=== PATIENT | female | born 1980 | race Hispanic/Latino ===

== ENCOUNTER → 2020-09-11 | Outpatient (CLI) | payer BC ==
[~2020-09-11] MED LIST: GADOTERATE MEGLUMINE 10 MMOL/20 ML VIAL IV ONE
== END | disposition home or self-care (01) ==
LOC: RAH 09:48
PROVIDERS: ATTEND Neurological Surgery
DX: M43.17 Spondylolisthesis, lumbosacral region (principal); M47.26 Other spondylosis with radiculopathy, lumbar region; R25.2 Cramp and spasm
CPT/HCPCS: 72158; A9575

== ENCOUNTER 2020-09-22 09:00 | Observation (INO) | payer BC ==
[~2020-09-22] VITALS: Ht 162.6 cm; Wt 93.1 kg
[2020-09-22 13:20] VITALS: BP 146/73
[2020-09-22 14:01] LABS: BASOPHILS % (AUTO) 0.3 % (0.0-5.0); EOSINOPHILS % (AUTO) 0.8 % (0.0-8.0); HEMATOCRIT 40.5 % (36-48); LYMPHOCYTES % (AUTO) 17.1 % (21.0-51.0); MEAN CORPUSCULAR HEMOGLOBIN 30.9 pg (27.0-33.0); MEAN CORPUSCULAR HGB CONC 32.3 g/dL (32.0-36.0); MEAN CORPUSCULAR VOLUME 95.5 fL (79-99); MONOCYTES % (AUTO) 8.2 % (3.0-13.0); PLATELET COUNT (AUTO) 310 K/uL (130-400); RED BLOOD CELL COUNT(AUTO) 4.24 MIL/uL (4.00-5.50); RED CELL DISTRIBUTION WIDTH 13.7 % (11.0-15.5); WHITE BLOOD COUNT (AUTO) 9.1 K/uL (4.8-10.8)
[2020-09-22 14:12] LABS: POTASSIUM 4.1 mmol/L (3.5-5.1)
[2020-09-25] MEDS ORDERED: FLUO40CA49 PO (15:41)
[2020-09-25] MEDS ORDERED: ACET-2247 PO (15:41)
[2020-09-25] MEDS ORDERED: IBUP-2077 PO (15:41)
[2020-09-26] VITALS (23 sets, daily range): BP systolic 120–152; BP diastolic 63–94
[2020-09-26] MEDS: CEFAZOLIN SODIUM 1 GM VIAL IVP SCH ×2 (06:00→07:45)
[2020-09-26] MEDS ORDERED: LACTATED RINGERS 1000ML 1,000 ML IV ONE (06:22)
[2020-09-26] MEDS ORDERED: CEFAZOLIN SODIUM 1 GM VIAL ONE (06:48)
[2020-09-26] MEDS ORDERED: MORPHINE PF 100MG/10ML AMP IV ONE (06:48)
[2020-09-26] MEDS ORDERED: BUPIVACAINE/EPI/PF 0.25% 30ML VIAL IJ ONE (06:48)
[2020-09-26] MEDS ORDERED: LIDOCAINE PF 100MG/5ML (2%) SYRINGE 5ML ONE (06:49)
[2020-09-26] MEDS ORDERED: THROMBIN-JMI 20000 UNIT KIT TP ONE (06:49)
[2020-09-26] MEDS ORDERED: ROCURONIUM 10MG/1ML SYR 10 MG/ML ML ONE (06:50)
[2020-09-26] MEDS ORDERED: MIDAZOLAM HCL 1 MG/ML 2ML VIAL ONE (06:50)
[2020-09-26] MEDS ORDERED: FENTANYL CITRATE PF 50 MCG/1 ML 5ML AMP IV ONE (06:50)
[2020-09-26] MEDS ORDERED: PROPOFOL 10 MG/ML 20ML VIAL IV ONE ×2 (06:50→07:40)
[2020-09-26] MEDS ORDERED: KETAMINE 50MG/ML SYRINGE 50 MG/ML DISP.SYRIN IV ONE (07:18)
[2020-09-26] MEDS ORDERED: DEXAMETHASONE SOD PHOSPHATE 10MG/ML 1ML VIAL ONE (07:38)
[2020-09-26] MEDS ORDERED: ONDANSETRON 4MG INJ ONE (08:00)
[2020-09-26] MEDS ORDERED: GLYCOPYRROLATE 1 MG/5 ML SYRINGE ONE (09:08)
[2020-09-26] MEDS ORDERED: KETOROLAC 30MG VIAL (30MG/ML) ONE (09:39)
[2020-09-26] MEDS ORDERED: NEOSTIGMINE 5MG/5ML SYR IV ONE (09:50)
[2020-09-26] MEDS ORDERED: FENTANYL CITRATE PF 50 MCG/1 ML 2ML VIAL ONE (10:03)
[2020-09-26] MEDS ORDERED: MEPERIDINE-PF 25 MG/ML SYG ONE ×2 (10:25→10:37)
[2020-09-26] MEDS ORDERED: IBUPROFEN 800 MG TAB PO PRN (10:30)
[2020-09-26] MEDS: DEXAMETHASONE SOD PHOSPHATE 4 MG/ML 1ML VIAL IVP SCH ×3 (10:30→20:05)
[2020-09-26] MEDS ORDERED: PROMETHAZINE HCL 25 MG/ML 1ML AMPULE IM PRN (10:30)
[2020-09-26] MEDS ORDERED: ACETAMINOPHEN 325 MG TAB PO PRN (10:30)
[2020-09-26] MEDS ORDERED: LACTATED RINGERS 1000ML 1,000 ML IV SCH (10:30)
[2020-09-26] MEDS ORDERED: MORPHINE 2 MG SYG IVP PRN (10:30)
[2020-09-26] MEDS ORDERED: 0.9%NACL 10ML VIAL IVP PRN (10:30)
[2020-09-26] MEDS ORDERED: CEFAZOLIN SODIUM 1 GM VIAL IVP SCH (15:30)
[2020-09-26] MEDS: HYDROCODONE/ACETAMINOPHEN 5/325 MG TAB PO PRN (15:55)
[2020-09-26] MEDS ORDERED: FLUOXETINE HCL 20 MG CAPSULE PO SCH (21:00)
[2020-09-26] MEDS ORDERED: TRAZ-185 PO (21:44)
[2020-09-26] MEDS ORDERED: TIZA-194 PO (21:44)
[2020-09-26] MEDS ORDERED: TRAZODONE HCL 50 MG TAB ONE (21:48)
[2020-09-27] VITALS: BP 135/76
[2020-09-27] MEDS: DEXAMETHASONE SOD PHOSPHATE 4 MG/ML 1ML VIAL IVP SCH (03:44)
[2020-09-27 04:00] VITALS: BP 120/74
[2020-09-27 07:30] VITALS: BP 113/70
[2020-09-27] MEDS: HYDROCODONE/ACETAMINOPHEN 5/325 MG TAB PO PRN (08:05)
[2020-09-27] MEDS ORDERED: TRAZODONE HCL 50 MG TAB PO SCH (21:00)
[2020-09-27] MEDS ORDERED: TIZANIDINE HCL 2 MG TABLET PO SCH (21:00)
== END 2020-09-27 10:05 | disposition home or self-care (01) ==
LOC: EDSTATUS 09:00 → OBSVTOIN 09-26 06:27 → INTOOBSV 09-26 06:27 → DAHIP 09-26 06:27 → 4BH 09-26 11:20 → 4AH 09-26 11:27
PROVIDERS: ADMIT Neurological Surgery; ATTEND Neurological Surgery
DX: M54.16 Radiculopathy, lumbar region (principal); Z20.822 Contact with and (suspected) exposure to COVID-19; M48.061 Spinal stenosis, lumbar region without neurogenic claudication; M67.441 Ganglion, right hand
CPT/HCPCS: 36415; 63047; 63048; 71045; 72020; 80051; 84703; 85025; 87635; 88305; 88313; 88341; 88342; 93005; 96374; 96375; 96376 ×2; A4215; A4221; A4222; A4223; A4344; A4495; A4600; A4649 ×3; A4663; A6260; G0378 ×24; J0690 ×3; J1100 ×5; J1885; J2001; J2175 ×2; J2250; J2274; J2405; J2704 ×2; J2710; J3010 ×2; J3490 ×3; J7120 ×4

== ENCOUNTER → 2021-07-20 | Outpatient (CLI) | payer BC ==
[~2021-07-20] MED LIST changes: +ACET-2247 PO; +FLUO40CA49 PO; -GADOTERATE MEGLUMINE 10 MMOL/20 ML VIAL IV ONE; +IBUP-2077 PO; +TIZA-194 PO; +TRAZ-185 PO
== END | disposition home or self-care (01) ==
LOC: RAH 14:56
PROVIDERS: ATTEND Nurse Practitioner Adult Health
DX: Z12.31 Encounter for screening mammogram for malignant neoplasm of breast (principal)
CPT/HCPCS: 77067

== ENCOUNTER → 2021-09-25 | Outpatient (CLI) | payer BC | END | disposition home or self-care (01) | LOC: LAB 09:00 | PROVIDERS: ATTEND Hospitalist | DX: Z20.822 Contact with and (suspected) exposure to COVID-19 (principal) | CPT/HCPCS: 87426 ==

== ENCOUNTER → 2022-07-02 | Outpatient (CLI) | payer BC ==
[~2022-07-02] MED LIST changes: +IOHEXOL-350 50ML VIAL IV ONE
== END | disposition home or self-care (01) ==
LOC: RAH 13:58
PROVIDERS: ATTEND Obstetrics & Gynecology
DX: D25.9 Leiomyoma of uterus, unspecified (principal)
CPT/HCPCS: 74740; 58340; Q9967

== ENCOUNTER → 2023-10-03 | Outpatient (CLI) | payer BC ==
[~2023-10-03] MED LIST changes: -IOHEXOL-350 50ML VIAL IV ONE
== END | disposition home or self-care (01) ==
LOC: RAH 08:37
PROVIDERS: ATTEND Nurse Practitioner Adult Health
DX: Z12.31 Encounter for screening mammogram for malignant neoplasm of breast (principal); N63.20 Unspecified lump in the left breast, unspecified quadrant
CPT/HCPCS: 77067